=== PATIENT | male | born 1960 | race Caucasian/White ===

== ENCOUNTER 2024-09-10 06:03 | Day surgery (SDC) | payer OTHER, SELFPAY ==
[2024-08-17 08:19] VITALS: BMI 33.0
[2024-08-17 08:52] LABS: Hematocrit 39.4 % (39.0-52.0); Hemoglobin 13.5 g/dL (13.0-18.0); Mean Corp Hgb Conc. 34.3 g/dL (33.0-37.0); Mean Corpuscular Volume 89.1 fL (80.0-94.0); Nucleated Red Blood Cells % 0 % (-); Platelet Count 172 10^3/uL (130-400); Red Cell Dist. Width 14.6 % (11.5-14.5)
[2024-08-17 09:01] LABS: INR 1.18; PT 15.3 Sec (11.4-14.6)
[2024-08-17 09:23] LABS: ALT (SGPT) 14 U/L (0-50); AST (SGOT) 15 U/L (17-59); Albumin 4.4 g/dl (3.5-5.0); Alkaline Phosphatase 67 U/L (38-126); Blood Urea Nitrogen 18 mg/dl (9-20); Calcium 9.5 mg/dl (8.4-10.2); Carbon Dioxide 28 mmol/L (22-30); Chloride 107 mmol/L (98-107); Estimated Creatinine Clearance 89 ml/min; Glucose 89 mg/dl (70-99); Magnesium 2.3 mg/dl (1.6-2.3); Potassium 4.4 mmol/L (3.5-5.1); Sodium 142 mmol/L (135-145); Total Protein 7.1 g/dl (6.3-8.2); eGFR > 60.00
[2024-09-10] VITALS (11 sets, daily range): BP systolic 92–143; BP diastolic 57–84; BMI 31.6
[2024-09-10 09:05] LABS: ACT-LR - POC 321 Seconds (116-155)
[2024-09-10 09:25] LABS: ACT-LR - POC 369 Seconds (116-155)
--- NOTE | 2024-09-10 10:06 | ITS.CL.ABL ---
Sales Service Professional - Ablation
Ablation
Procedure Report:
ELECTROPHYSIOLOGY ABLATION STUDY
DATE:: September 10, 2024�����������������������������REFERRING: Dr. Licea
INDICATION: Paroxysmal supraventricular tachycardia in the form of atrial fibrillation.� Primary pulmonary vein isolation and left atrial posterior wall isolation see prior reports
HISTORY: See H and P.��As above
ANTIARRHYTHMIC DRUG: Sotalol
PRE-PROCEDURE DIANE: No atrial thrombus
PRESENTING RHYTHM: Sinus bradycardia
'TIME-OUT':��called and confirmed.
SEDATION/ANESTHESIA:��provided via the anesthesia department using general anesthesia (LMA).
INTRAVENOUS/ARTERIAL ACCESS:
Right femoral venous - 8Fr
Left femoral venous - 8 Fr, 6 Fr
Ultrasound guidance for bilateral femoral vein access was utilized by me to obtain access with demonstration of normal anatomy
CHADS-VASC Score:
HAS-Bled Score
PROCEDURE:
1.��A decapolar CS catheter was placed within the CS for mapping and pacing.��This was also used as the reference catheter for the 3-D map.
2. The intracardiac ultrasound catheter was positioned in the RA to identify the FO for targeting of transseptal puncture, assist��in identification of the pulmonary vein ostia, monitoring pre and post ablation pulmonary vein flow velocities,
monitoring for 'bubble' formation during RF application as a sign of thermal injury,��and to monitor for pericardial effusion during mapping and ablation procedure.���Left atrial size, LV ejection fraction, and pulmonary vein flows were monitored
pre and post ablation procedure. The other valves were inspected and found to be free of significant regurgitation or stenosis.
3.��Half of the calculated heparin bolus was administered prior to the first transeptal puncture.��Transseptal puncture was performed to diagnose RA and LA pressure so that safety of LA mapping and ablation could be further assessed, and to access
the left atrium and pulmonary veins for mapping and ablation.��This entailed advancing an 10 [place] steerable sheath with dilator into the superior vena cava and withdrawing both (monitoring intracardiac ultrasound, fluoroscopy and tip pressure)
with the tip oriented toward the atrial septum.��The fossa ovalis was engaged (indicated by sudden displacement of the sheath tip as well as tenting of the fossa seen on intracardiac ultrasound).��Left atrial access required a pass with the
Brockenbrough needle extended.��Left atrial catheter position was confirmed by pressure monitoring (RA mean pressure 8 mm Hg and LA mean presure 14 mm Hg), LA saturation (99%),��as well as fluoroscopy.��The sheath was advanced over the dilator and
positioned in the left atrium.��This procedure was repeated for the Agilis sheath.��The remainder of the calculated heparin bolus was administered and heparin was
infused to maintain ACT at 300 -350 seconds throughout the case.
4.��RA pacing was performed via the proximal decapolar poles and LA pacing was performed via the distal decapolr poles.
5. A quadrapolar catheter was first positioned at the His position for His Bundle recording which was tagged via the 3-D Navex sytem, and then passed to the RVA for RV pacing and recording.
6. The 9 mm lattice was placed in each of the LIPV, LSPV, RSPV and the RIPV.��
7.��Next, a 3-D map was created using Navex.���A 3-D reconstructed CT image was compared to the 3-D Navex map to assist in anatomic interpretation, mapping and ablation.��The CT image and the NavX image were fused.
8. The left superior pulmonary vein was connected at the alexander and the right superior pulmonary vein was connected at the alexander as well. The previous posterior wall line from alexander alexander was intact with patchy ingrowth from the superior and
inferior aspects. We performed circumferential ablation around the left veins also with particular attention to the left atrial appendage side of the ligament of Blane as well as the vein side of the ligament of Blane. Roofline and floor
line were fashioned and wide circumferential ablation around the right pulmonary veins was also performed. This led to entrance and exit block in all 4 pulmonary veins as well as electrical isolation of the left atrial roof posterior wall and
floor. A small area of healthy tissue was left at the coronary sinus and floor of the left atrium as well as anterior to the left atrial appendage. The patient was noninducible for other tachyarrhythmias after ablation.
9. Normal sinus node and AV node function noted.
TOTAL FLOURO TIME: 10.1 minutes
TOTAL RF DURATION: 0 minutes
REVERSAL OF HEPARIN: 30 mg of protamine, slow IV administration
COMPLICATIONS:
None
Intracardiac US shows no pericardial effusion post ablation.
SUMMARY:��
Complex left atrial mapping and ablation.
Reisolation of the right and left pulmonary veins at each alexander and roof�floor line performed in the posterior wall isolating the posterior wall from anterior roof to the inferior floor.
RECOMMENDATIONS:
1. Ambulate 4 hours
2. Resume anticoagulation
3.��Lower sotalol to 80 mg twice daily
4.� Consider same-day discharge
Copy to: Dr. Licea
--- NOTE | 2024-09-10 14:24 | W.PN.UPDATE ---
Update Note
Progress Note Update
64 yo WM s/p PVI (same day). He denies cp, sob, dea diet, b/l groins c/d/i no HT, soft, EKG SR. He will resume Eliquis tonight. He will decrease sotalol to 80mg bid. Activity restrictions reviewed. He will f/u Dr. Licea in 3 mo. He is for
d/c home after 230p if groin stable and able to void.
== END 2024-09-10 14:48 | disposition home or self-care (01) ==
LOC: CATH 06:03
PROVIDERS: ATTENDING PHYSICIAN Internal Medicine Cardiovascular Disease; FAMILY PHYSICIAN Family Medicine; OTHER PHYSICIAN Internal Medicine Cardiovascular Disease
DX: I48.19 Other persistent atrial fibrillation (principal); I10 Essential (primary) hypertension; E66.9 Obesity, unspecified; Z68.33 Body mass index [BMI] 33.0-33.9, adult; G47.33 Obstructive sleep apnea (adult) (pediatric); J47.9 Bronchiectasis, uncomplicated; Z79.01 Long term (current) use of anticoagulants; Z79.899 Other long term (current) drug therapy; Z79.85 Long-term (current) use of injectable non-insulin antidiabetic drugs; I47.19 Other supraventricular tachycardia
CPT/HCPCS: C1733; C1894; C1730; C1766; C1892; C1759; 36415; 80053; 83735; 85025; 85347; 85610; 86850; 86900; 86901; 93005; 93656; 93657